=== PATIENT | male | born 1985 | race Caucasian/White ===

== ENCOUNTER 2021-06-13 14:00 | Emergency (ER) | payer OTHER ==
[2021-06-13] MEDS ORDERED: predniSONE 20 MG TABLET (UD) PO ONE (14:43)
[2021-06-13] MEDS ORDERED: ALBUTEROL SO4 2.5/IPRATROPIUM 0.5 INH SOL 3 ML VIAL.NEB. NEB ONE ×2 (14:43→14:51)
[2021-06-13] MEDS ORDERED: predniSONE 20 MG TABLET (UD) ONE (14:51)
[2021-06-13 16:14] VITALS: BP 116/72; PULSE 105; TEMP 98.4
== END 2021-06-13 16:43 | disposition home or self-care (01) ==
LOC: JER 14:00
PROC: 3E0F7GC Introduction of Other Therapeutic Substance into Respiratory Tract, Via Natural or Artificial Opening (ICD-10-PCS; principal; 2021-06-13)
DX: J45.901 Unspecified asthma with (acute) exacerbation (principal)
CPT/HCPCS: 87880; 99283-25; C9803; U0003; U0005

== ENCOUNTER 2022-04-13 08:07 | Emergency (ER) | payer OTHER ==
[2022-04-13 08:13] VITALS: RESP 18; TEMP 97.6; BMI 23.1
[2022-04-13] MEDS ORDERED: SODIUM CHLORIDE 0.9% 500 ML INFUS.BAG IV ONE ×2 (08:55→11:11)
[2022-04-13 10:28] LABS: BASO % 0.3 % (0-2.0); EOS % 0.4 % (0-4.5); HEMATOCRIT 44.3 % (35.4-49); HEMOGLOBIN 14.8 GM/dL (11.7-16.9); LYMPH % 16.1 % (8-40); MCHC 33.3 g/dl (32.0-35.9); MEAN CELL VOLUME 84.2 fl (80-96); MEAN PLT VOLUME 10.5 fl (7.5-11.1); MONO % 4.8 % (3.8-10.2); NEUT % 78.4 % (42.8-82.8); PLATELET COUNT 202 10^3/uL (134-434); RBC 5.27 M/mm3 (4.00-5.60); WHITE BLOOD COUNT 7.1 K/mm3 (4.0-10.0)
[2022-04-13 10:43] LABS: CALCIUM 8.3 mg/dL (8.5-10.1)
[2022-04-13 10:44] LABS: ALBUMIN 3.5 g/dl (3.4-5.0); BLOOD UREA NITROGEN 10.9 mg/dL (7-18)
[2022-04-13 10:48] LABS: CREATININE 0.9 mg/dL (0.55-1.3); TOT PROT 6.7 g/dl (6.4-8.2)
[2022-04-13 10:49] LABS: BILIRUBIN,TOTAL 0.5 mg/dL (0.2-1)
[2022-04-13 14:18] VITALS: BP 117/74; PULSE 46
== END 2022-04-13 15:05 | disposition home or self-care (01) ==
LOC: JER 08:07
DX: R74.8 Abnormal levels of other serum enzymes (principal)
CPT/HCPCS: 36415; 71046-TC-FY; 80053; 82550; 82553; 84439; 84443; 84484; 85025; 93005; 93010; 99284-25

== ENCOUNTER 2023-05-31 10:36 | Day surgery (SDC) | payer OTHER ==
[2023-05-31] MEDS ORDERED: SODIUM CHLORIDE 1,000 ML IV STA ×2 (11:40→16:48)
[2023-05-31] MEDS ORDERED: ACETAMINOPHEN 1000 MG/100 ML BAG IVPB ONE (11:49)
[2023-05-31] MEDS ORDERED: ACETAMINOPHEN INJECTION 100 ML IVPB ONE (12:04)
[2023-05-31 12:41] LABS: BASO % 0.6 % (0-2.0); EOS % 3.3 % (0-4.5); HEMATOCRIT 42.6 % (35.4-49); HEMOGLOBIN 14.6 GM/dL (11.7-16.9); LYMPH % 39.5 % (8-40); MCH 28.7 pg (25.7-33.7); MCHC 34.3 g/dl (32.0-35.9); MEAN CELL VOLUME 83.7 fl (80-96); MEAN PLT VOLUME 9.7 fl (7.5-11.1); MONO % 8.3 % (3.8-10.2); NEUT % 48.3 % (42.8-82.8); PLATELET COUNT 201 10^3/uL (134-434); RBC 5.09 M/mm3 (4.00-5.60); RDW 13.7 % (11.9-15.9); WHITE BLOOD COUNT 5.1 K/mm3 (4.0-10.0)
[2023-05-31 12:47] LABS: INR 1.07 (0.83-1.09); PROTHROMBIN TIME (PATIENT) 12.4 SEC (9.7-13.0)
[2023-05-31 12:56] LABS: POTASSIUM 4.3 mmol/L (3.5-5.1)
[2023-05-31 12:58] LABS: CALCIUM 8.9 mg/dL (8.5-10.1)
[2023-05-31 12:59] LABS: ALBUMIN 3.8 g/dl (3.4-5.0)
[2023-05-31 13:02] LABS: CREATININE 1.1 mg/dL (0.55-1.3)
[2023-05-31 13:04] LABS: BILIRUBIN,TOTAL 0.7 mg/dL (0.2-1); TOT PROT 7.1 g/dl (6.4-8.2)
[2023-05-31 13:24] LABS: PH,URINE 6.5 (5.0-8.0); URINE APPEARANCE CLEAR; URINE BILIRUBIN NEGATIVE (NEGATIVE); URINE COLOR YELLOW; URINE GLUCOSE (UA) NEGATIVE (NEGATIVE); URINE KETONE NEGATIVE (NEGATIVE); URINE LEUK ESTERASE NEGATIVE (NEGATIVE); URINE NITRITE NEGATIVE (NEGATIVE); URINE PROTEIN NEGATIVE (NEGATIVE); URINE UROBILINOGEN 0.2 mg/dL (0.2-1.0)
[2023-05-31] MEDS ORDERED: PIPERACILLIN/TAZOB 4.5 GM 4.5 GM in DEXTROSE 5%-WATER 100 ML IVPB ONE (16:48)
[2023-05-31] MEDS ORDERED: PIPERACILLIN/TAZOB 4.5 GM 4.5 GM/100 ML BAG IVPB ONE (17:19)
[2023-05-31 17:29] LABS: INR 1.12 (0.83-1.09)
[2023-05-31 17:32] LABS: ACTIVATED PTT 34.2 SECONDS (25.2-36.5)
[2023-05-31] MEDS ORDERED: ALBUTEROL SO4 HFA INHALER IH PRN (23:36)
[2023-06-01] MEDS ORDERED: AMPICILLIN NA/SULBACTAM NA 1.5 GM VIAL ONE ×2 (00:23→05:40)
[2023-06-01] MEDS: AMPICILLIN NA/SULBACTAM NA 1.5 GM in SODIUM CHLORIDE 100 ML IVPB SCH ×4 (00:53→21:28)
[2023-06-01] MEDS: SODIUM CHLORIDE 1,000 ML IV SCH ×2 (00:53→12:58)
[2023-06-01 07:35] LABS: HEMATOCRIT 39.8 % (35.4-49); HEMOGLOBIN 13.2 GM/dL (11.7-16.9); MCH 28.4 pg (25.7-33.7); MCHC 33.1 g/dl (32.0-35.9); MEAN CELL VOLUME 85.7 fl (80-96); MEAN PLT VOLUME 10.6 fl (7.5-11.1); PLATELET COUNT 185 10^3/uL (134-434); RBC 4.65 M/mm3 (4.00-5.60); RDW 13.5 % (11.9-15.9); WHITE BLOOD COUNT 5.9 K/mm3 (4.0-10.0)
[2023-06-01 07:54] LABS: POTASSIUM 4.1 mmol/L (3.5-5.1)
[2023-06-01 07:57] LABS: INR 1.1 (0.83-1.09); PROTHROMBIN TIME (PATIENT) 12.7 SEC (9.7-13.0)
[2023-06-01 08:00] LABS: ACTIVATED PTT 32.3 SECONDS (25.2-36.5); CALCIUM 8.3 mg/dL (8.5-10.1)
[2023-06-01 08:01] LABS: ALBUMIN 3.2 g/dl (3.4-5.0); BLOOD UREA NITROGEN 14.6 mg/dL (7-18); MAGNESIUM 1.7 mg/dL (1.8-2.4)
[2023-06-01 08:04] LABS: CREATININE 1.1 mg/dL (0.55-1.3); PHOSPHOROUS 4.4 mg/dL (2.5-4.9)
[2023-06-01 08:06] LABS: BILIRUBIN,TOTAL 0.7 mg/dL (0.2-1); TOT PROT 6.1 g/dl (6.4-8.2)
[2023-06-01] MEDS ORDERED: ONDANSETRON 4 MG/2 ML VIAL IVPUSH PRN (11:12)
[2023-06-01 12:52] VITALS: BMI 23.1
[2023-06-02] MEDS ORDERED: AMPICILLIN NA/SULBACTAM NA 1.5 GM VIAL ONE (01:57)
[2023-06-02] MEDS: SODIUM CHLORIDE 1,000 ML IV SCH ×2 (02:00→11:54)
[2023-06-02] MEDS: AMPICILLIN NA/SULBACTAM NA 1.5 GM in SODIUM CHLORIDE 100 ML IVPB SCH ×2 (03:35→09:53)
[2023-06-02] MEDS ORDERED: BUPIVACAINE HCL/PF 0.25% (2.5MG/ML) 10 ML VIAL ONE (11:09)
[2023-06-02] MEDS ORDERED: LIDOCAINE HCL/PF 2% SDV 5ML VIAL ONE (11:51)
[2023-06-02] MEDS ORDERED: FENTANYL CITRATE/PF 50 MCG/ML VIAL ONE ×2 (11:51→13:12)
[2023-06-02] MEDS ORDERED: MIDAZOLAM HCL 2 MG/2 ML SINGLE DOSE VIAL ONE (11:52)
[2023-06-02] MEDS ORDERED: PROPOFOL 20 ML ONE (11:52)
[2023-06-02] MEDS ORDERED: ROCURONIUM BROMIDE 50 MG/5 ML SYRINGE ONE (11:52)
[2023-06-02] MEDS ORDERED: DEXAMETHASONE SOD PHOSPHATE 4 MG/1 ML VIAL ONE (12:17)
[2023-06-02] MEDS ORDERED: ONDANSETRON 4 MG/2 ML VIAL ONE (12:17)
[2023-06-02] MEDS ORDERED: BUPIVACAINE HCL/PF 0.25% (2.5MG/ML) 10 ML VIAL IJ ONE (12:24)
[2023-06-02] MEDS ORDERED: GLYCOPYRROLATE 0.2 MG/1 ML VIAL ONE ×2 (12:24→12:30)
[2023-06-02] MEDS ORDERED: NEOSTIGMINE METHYLSULFATE 0.5 MG/1 ML - 10 ML MDV ONE (12:30)
[2023-06-02] MEDS ORDERED: KETOROLAC TROMETHAMINE 30 MG/1 ML VIAL ONE (12:43)
[2023-06-02] MEDS ORDERED: ONDANSETRON 4 MG/2 ML VIAL IVPUSH PRN ×2 (13:02→13:46)
[2023-06-02] MEDS ORDERED: ACETAMINOPHEN 1000 MG/100 ML BAG IVPB ONE (13:12)
[2023-06-02] MEDS ORDERED: LACTATED RINGERS SOLUTION 1,000 ML IV SCH ×2 (13:15→13:46)
[2023-06-02] MEDS ORDERED: ALBUTEROL SO4 HFA INHALER IH PRN (13:46)
[2023-06-02] MEDS ORDERED: ACETAMINOPHEN INJECTION 100 ML IVPB ONE (13:51)
[2023-06-02 14:16] VITALS: BP 128/77; PULSE 66; RESP 18; TEMP 98.5
[2023-06-02] MEDS ORDERED: oxyCODONE HCL 5 MG TABLET PO ONE (16:00)
== END 2023-06-02 19:16 | disposition home or self-care (01) ==
LOC: JER 10:36 → JERBED 17:22 → UNDOADMIN 17:22 → JASUSAT 06-01 09:47 → SUATTDRO 06-01 09:47 → J8W 06-01 12:28 → JASUSAT 06-02 19:16
PROVIDERS: ATTEND Nurse Practitioner Acute Care
PROC: 0DTJ4ZZ Resection of Appendix, Percutaneous Endoscopic Approach (ICD-10-PCS; principal; 2023-06-01)
DX: K36 Other appendicitis (principal)
CPT/HCPCS: 36415; 74177-TC; 80053; 81003; 83690; 83735; 84100; 85025; 85027; 85610; 85730; 86850; 86900; 86901; 87086; 88304-TC; 93005; 93010; 94760; 99285-25; Q9967

== ENCOUNTER 2023-11-26 07:36 | Emergency (ER) | payer SELFPAY ==
[2023-11-26 07:57] VITALS: RESP 18; TEMP 97.7; BMI 23.7
[2023-11-26] MEDS ORDERED: MECLIZINE HCL 25 MG TABLET (FP) ONE (08:26)
[2023-11-26] MEDS: MECLIZINE HCL 25 MG TABLET (FP) PO ONE (08:30)
[2023-11-26 08:55] LABS: BASO % 0.7 % (0-2.0); EOS % 2.4 % (0-4.5); HEMATOCRIT 46.6 % (35.4-49); HEMOGLOBIN 15.1 GM/dL (11.7-16.9); LYMPH % 29.1 % (8-40); MCHC 32.4 g/dl (32.0-35.9); MEAN CELL VOLUME 86.5 fl (80-96); MEAN PLT VOLUME 9.9 fl (7.5-11.1); MONO % 6.6 % (3.8-10.2); NEUT % 61.2 % (42.8-82.8); PLATELET COUNT 185 10^3/uL (134-434); RBC 5.39 M/mm3 (4.00-5.60); RDW 13.6 % (11.9-15.9); WHITE BLOOD COUNT 5.7 K/mm3 (4.0-10.0)
[2023-11-26 09:54] LABS: POTASSIUM 4.6 mmol/L (3.5-5.1)
[2023-11-26 09:56] LABS: CALCIUM 9.4 mg/dL (8.5-10.1)
[2023-11-26 09:57] LABS: ALBUMIN 3.7 g/dl (3.4-5.0)
[2023-11-26 10:00] LABS: CREATININE 1.2 mg/dL (0.55-1.3)
[2023-11-26 10:01] LABS: BILIRUBIN,TOTAL 0.7 mg/dL (0.2-1)
[2023-11-26 10:02] LABS: TOT PROT 7.6 g/dl (6.4-8.2)
[2023-11-26 10:39] VITALS: BP 119/76; PULSE 55
[2023-11-26] MEDS ORDERED: METOCLOPRAMIDE HCL INJECTION 10 MG/2 ML VIAL ONE (10:53)
[2023-11-26] MEDS: LACTATED RINGERS SOLUTION 1000 ML INFUS.BAG IV ONE (10:57)
[2023-11-26] MEDS: METOCLOPRAMIDE HCL INJECTION 10 MG/2 ML VIAL IVPB ONE (10:57)
== END 2023-11-26 12:51 | disposition home or self-care (01) ==
LOC: JER 07:36
PROC: 3E030GC Introduction of Other Therapeutic Substance into Peripheral Vein, Open Approach (ICD-10-PCS; principal; 2023-11-26)
DX: H66.91 Otitis media, unspecified, right ear (principal); R42 Dizziness and giddiness; Z20.822 Contact with and (suspected) exposure to COVID-19
CPT/HCPCS: 0241U-QW; 36415; 80053; 82962; 83735; 85025; 93005; 93010; 99284-25